=== PATIENT | female | born 1980 | race Two or more races ===

== ENCOUNTER 2018-04-23 23:13 | Emergency (ER) | payer OTHER ==
[~2018-04-23] VITALS: Ht 175.3 cm; Wt 104.3 kg
--- NOTE | 2018-04-23 23:33 | NUR ---
Note undone in EDM - 04/24/18 at 0110 by CHRISTIAN PT BIB RA C/C OF SYNCOPAL EPISODE SECONDARY TO OVERDOSE. "I TOOK 60 PILLS OF RISPERDONE." AA/OX4. NO S/S OF SOB. SKINS PINK WARM DRY. AMBULATED TO BATHROOM WITH STABLE GAIT. NAD. VSS. STABLE CONDITION. AWAITING MD ORDERS/EVAL.
--- NOTE | 2018-04-23 23:33 | NUR ---
PT BIB RA C/C OF SYNCOPAL EPISODE SECONDARY TO OVERDOSE. "I TOOK 60 PILLS OF RISPERDONE." AA/OX4. SINUS TACH 120. NO S/S OF SOB. SKINS PINK WARM DRY. AMBULATED TO BATHROOM WITH STABLE GAIT. NAD. AWAITING MD ORDERS/EVAL.
[2018-04-23 23:57] LABS: BASOPHILS % (AUTO) 0.1 % (0.0-2.0); HEMATOCRIT 40 % (33-45); HEMOGLOBIN 13.7 g/dL (11.5-14.8); LYMPHOCYTES # (AUTO) 0.7 /CMM (0.8-4.8); LYMPHOCYTES % (AUTO) 6.5 % (20.0-44.0); MEAN CORPUSCULAR HEMOGLOBIN 31 PG (26.0-33.0); MEAN CORPUSCULAR HGB CONC 34 g/dl (31.0-36.0); MEAN CORPUSCULAR VOLUME 90 fL (82-100); MONOCYTES # (AUTO) 0.3 /CMM (0.1-1.30); MONOCYTES % (AUTO) 2.4 % (2.0-12.0); NEUTROPHILS # (AUTO) 10.2 /CMM (1.8-8.9); PLATELET COUNT (AUTO) 199 /CMM (150-450); RDW COEFFICIENT OF VARIATION 12.6 (11.5-15.0); RED BLOOD CELL COUNT(AUTO) 4.49 MIL/uL (4.0-5.2); WHITE BLOOD COUNT (AUTO) 11.2 K/uL (4.3-11.0)
[2018-04-24 00:07] LABS: CALCIUM, SERUM 8.5 mg/dL (8.5-10.1); CARBON DIOXIDE 22 mmol/L (21-32); CHLORIDE 98 mmol/L (98-107); CREATININE 1.1 mg/dL (0.6-1.3); GLUCOSE 228 mg/dL (74-106); POTASSIUM 2.9 mmol/L (3.5-5.1); SODIUM SERUM 134 mmol/L (136-145); UREA NITROGEN, BLOOD 14 mg/dL (7-18)
[2018-04-24 00:18] LABS: ALANINE AMINOTRANSFERASE 25 U/L (12-78); ALBUMIN 3.7 g/dL (3.4-5.0); ALKALINE PHOSPHATASE 51 U/L (46-116); ASPARTATE AMINOTRANSFERASE 12 U/L (15-37); BILIRUBIN,DIRECT 0.1 mg/dL (0.0-0.2); BILIRUBIN,TOTAL 0.4 mg/dL (0.2-1.0); TOTAL PROTEIN, SERUM 7.2 g/dL (6.4-8.2)
[2018-04-24 00:19] LABS: ACETAMINOPHEN 0 ug/ml (10-30); ALCOHOL, BLOOD < 3 mg/dL (0-0); SALICYLATE 1.6 mg/dL (2.8-20.0)
[2018-04-24] MEDS ORDERED: POTASSIUM CHLORIDE 20 MEQ TAB.PRT.SR PO ONE ×2 (00:30→01:02)
--- NOTE | 2018-04-24 01:05 | NUR ---
KERLINE FARNSWORTH LCSW, IS AT THE BEDSIDE EVALUATING THE PT.
--- NOTE | 2018-04-24 01:10 | NUR ---
PT IS TACHY WITH HR 125. PT DENIES CP AT THIS TIME. PT IS AA&O X4. PT DENIES SI AT THIS TIME. PT STATED THAT SHE TOOK 2 RESPIRODOL TABLETS AND HER DEPAKOTE LAST NIGHT.
--- NOTE | 2018-04-24 01:11 | NUR ---
Patient is resting comfortably in bed. Easily aroused. SAFETY MEASURES IN PLACE. CALL LIGHT WITHIN REACH
[2018-04-24] MEDS ORDERED: BENZTROPINE MESYLATE (1 MG) 1 MG TABLET ONE (01:16)
[2018-04-24] MEDS ORDERED: LORAZEPAM 1 MG TABLET ONE (01:16)
[2018-04-24] MEDS ORDERED: LORAZEPAM 1 MG TABLET PO ONE (01:30)
[2018-04-24] MEDS ORDERED: BENZTROPINE MESYLATE (1 MG) 1 MG TABLET PO ONE (01:30)
--- NOTE | 2018-04-24 01:35 | NUR ---
Patient discharged to home in stable condition. Written and verbal after care instructions given. Patient verbalizes understanding of instruction. IV removed. Catheter intact and site benign. Pressure and 4x4 applied to site. No bleeding noted. PT AMBULATED WITH STEADY GAIT. INSTRUCTED NOT TO OPERATE HEAVY MACHINERY.
[2018-04-24 01:37] VITALS: BP 124/66
== END 2018-04-24 01:39 | disposition home or self-care (01) ==
LOC: ER 23:15
DX: F31.9 Bipolar disorder, unspecified (principal); T43.3X5A Adverse effect of phenothiazine antipsychotics and neuroleptics, initial encounter; Y92.89 Other specified places as the place of occurrence of the external cause
CPT/HCPCS: 36415; 80048; 80076; 80305; 80329; 85025; 99284; A4606; G0480 ×2; Z7610